=== PATIENT | female | born 1965 | race Caucasian/White ===

== ENCOUNTER 2021-03-05 08:53 | Outpatient (CLI) | payer MEDICARE, MEDICAID, SELFPAY ==
--- NOTE | ~2021-03-05 | CT_ITS ---
EXAMINATION: CT abdomen pelvis wo/w con EXAM DATE: 03/05/2021 09:45 INDICATION: Microscopic hematuria. TECHNIQUE: Spiral CT of the abdomen and pelvis was performed without contrast. The patient was then injected with small bolus intravenous Omnipaque 350, followed by delay of approximately 10 minutes to allow collecting system to opacify. A post contrast scan abdomen and pelvis was performed during inj ection of remaining contrast. A total of 130 cc intravenous contrast was administered. The dose-mich th product (DLP) for this examination was 2035.07 mGy-cm. The exposure was tailored according to pat ient size (auto mA exposure control), and iterative reconstruction (ASIR) was used as additional dose reduction technique. There is no prior study for comparison. FINDINGS: There is no hydronephrosis or nephrolithiasis. The kidneys enhance symmetrically. There are no suspicious renal lesions. The calyces and opacified portions of ureters are unremarkable, wit hout filling defects or focal suspicious strictures. The bladder is unremarkable. Uterus is antever arian and is probably a 4 cm fundal fibroid. The liver, spleen, adrenal glands and pancreas are unremarkable. Gallbladder is unremarkable. No bi liary obstruction. There is no retroperitoneal or pelvic lymphadenopathy. There is mild scattered arteriosclerotic disease. Tiny umbilical fat-containing hernia. There is mild scattered colonic diverticulosis. There is no adjacent inflammatory change to suggest diverticulitis. The stomach and small bowel are unremarkable. There is expected amount of colonic s tool. No free intraperitoneal gas. The heart is normal in size. There are no pericardial or pleu ral effusions. The lung bases are unremarkable. Advanced disc disease L4-5 and L5-S1. There are no osteoblastic or osteolytic lesions identified. IMPRESSION: 1. Fibroid. Otherwise unremarkable genitourinary system. 2. Mild colonic diverticulosis. Reviewed, dictated and finalized at location A.
== END 2021-03-05 08:54 | disposition home or self-care (01) ==
LOC: ANHIMG 09:09
PROVIDERS: PCP Internal Medicine; Visit Provider Urology
DX: R31.29 Other microscopic hematuria (principal); K57.30 Diverticulosis of large intestine without perforation or abscess without bleeding
CPT/HCPCS: 74178; Q9967

== ENCOUNTER 2024-10-26 07:14 | Outpatient (CLI) | payer OTHER, MEDICAID, SELFPAY ==
--- NOTE | ~2024-10-26 | MM_ITS ---
EXAMINATION: MM screening asad BI w nora HISTORY: Screening mammogram TECHNIQUE: Craniocaudal and mediolateral oblique 3-D tomosynthesis images were obtained and synthetic 2-D images were generated. CAD analysis was submitted and interpreted. COMPARISON: No prior mammogram is available for comparison at this institution. BREAST PARENCHYMAL COMPOSITION: The breasts are heterogeneously dense, which may obscure small masses . FINDINGS: There is no evidence of suspicious mass, calcification, or architectural distortion to sugg est malignancy in either breast. IMPRESSION: 1. No mammographic evidence of malignancy. 2. Recommend routine screening mammography in one year. BI-RADS Category 1: Negative Reviewed, dictated and finalized at location A. [employer]
== END 2024-10-26 07:15 | disposition home or self-care (01) ==
LOC: MICIMG 07:15
PROVIDERS: PCP Internal Medicine; Visit Provider Internal Medicine
DX: Z12.31 Encounter for screening mammogram for malignant neoplasm of breast (principal)
CPT/HCPCS: 77063; 77067

== ENCOUNTER 2025-07-26 01:36 | Day surgery (SDC) | payer MEDICARE, MEDICAID, SELFPAY ==
--- NOTE | 2025-07-19 11:27 | PC.NURSE ---
Report to the Outpatient Waiting Room, entrance under the green pavilion located off [facility], at time _9:30 AM on date __07/26/25 . Planned Procedure Time: _11:30 AM .? Time changes happen often and if your time is changed the preop area will call you the afternoon before. - You and your visitor will be asked to self-screen and do not enter if you have any COVID symptoms. Please call surgeon if you need to reschedule. - A mask is optional within the hospital at this time. Patients may have clear liquids (water, carbonated beverages, clear teas, apple juice) until 3 hours prior to surgery ( 8:30 AM) with a maximum of 20 ounces. - No food from midnight until time of surgery and no smoking, or chewing tobacco (or any form of nicotine). No chewing gum, candy or mints. Take only the following medications with a SIP of water on the morning of surgery: __ARIPIPRAZOLE,BUPROPION,BUSPIRONE DO NOT STOP ANY OF YOUR OTHER PRESCRIPTION MEDICATIONS PRIOR TO SURGERY EXCEPT THE FOLLOWING Hold all vitamins and supplements for 3 days per anesthesiologist.LAST DOSE 07/22/25 Medications to discontinue per physician DICLOFENAC PER DR LORETTA SALAMANCA Please no make-up, nail nepali, hairspray, perfume, deodorant, or body powder the day of surgery.? No jewelry (including any body piercings) or valuables the day of surgery, leave them at home.? Please take a shower or bath the night before, or the morning of, surgery with an antibacterial soap.? Wear comfortable, loose fitting clothing.? Children are encouraged to wear pajamas. - Jewelry must be removed prior to entering the operating room.? Rings and piercings that are not removed may be cut off. - The hospital will not accept responsibility for valuables.? - Please leave all valuables, including medications, at home the day of surgery. If you are going home after surgery, a licensed transit mixer driver must drive you home.? - NO public transportation without another adult if you receive anesthesia. - We recommend that an adult stay with you for 24 hours following discharge. - We also recommend that you do not drive, make important decision, drink alcoholic beverages, or take any drugs that were not prescribed by your health care provider for at least 24 hours after your discharge time. For Pediatric surgeries, we recommend two adults accompany the child home. Follow any additional instructions given to you from your surgeon. Telephone instructions given to __PATIENT and asked if any additional questions and then verbalized understanding. Patient advised to call surgeon office or pre surgery nurse liaison [phone] if any additional questions.
[2025-07-19 11:49] VITALS: BMI 32.8
--- NOTE | 2025-07-23 13:03 | PM.IMHP ---
H&P: HPI History of Present Illness Date/Time: 07/23/25 13:03 Chief Complaint: Uterine fibroids and pelvic pain Narrative: 59-year-old female admitted for robotic hysterectomy bilateral salpingo-oophorectomy secondary to symptomatic uterine fibroids. Risks and benefits of hysterectomy were reviewed including but exclusive of , aspiration, bleeding, transfusion, perforation injury to bowel, bladder, ureters, or other internal organs with need for open laparotomy. She received the ACOG handout entitled hysterectomy as well as de Marii handout. She had all questions answered. She asked to proceed Review of Systems Review of Systems: All systems reviewed & are unremarkable except as noted in HPI and below PMFSH Social History Social History Smoking packs per day: 1 Smoking cigarettes per day: 20.0 Years smoked: 40 Smoking pack-years: 40.00 Smoking status: Former smoker Tobacco type: cigarettes Smoking end date: 04/28/24 Living arrangements: alone Spiritual care concerns: No Meds Home Medications and Allergies Home Medications ?Medication ?Instructions ?Recorded ?Confirmed ?Type aripiprazole 2 mg tablet 2 mg PO DAILY 07/19/25 07/19/25 History atorvastatin 20 mg tablet 20 mg PO DAILY 07/19/25 07/19/25 History bupropion HCl 150 mg 24 hr tablet, 150 mg PO DAILY 07/19/25 07/19/25 History extended release buspirone 15 mg tablet 15 mg PO DAILY 07/19/25 07/19/25 History diclofenac sodium 75 mg 75 mg PO BID 07/19/25 07/19/25 History tablet,delayed release estradiol 0.0375 mg/24 hr 1 patch transdermal .EVERY 2 WEEKS 07/19/25 07/19/25 History semiweekly transdermal patch (Yessica) bhtyqlej-lzoc-snpg 8 mg-folic 400 1 tablet PO DAILY 07/19/25 07/19/25 History mcg-K 50 mcg-lutein 300 mcg tablet (Centrum Silver Women) progesterone micronized 100 mg 100 mg PO DAILY 07/19/25 07/19/25 History capsule venlafaxine 150 mg 150 mg PO HS 07/19/25 07/19/25 History capsule,extended release 24 hr Allergies Allergy/AdvReac Type Severity Reaction Status Date / Time No Known Allergies Allergy Verified 07/19/25 11:26 Exam Const: General: cooperative, healthy appearing and comfortable Nutritional Appearance: overweight Orientation/consciousness: oriented to person, oriented to place and oriented to time HENMT: Head: normal to inspection Resp: Effort & Inspection: normal respiratory effort Cardio: Rate: regular rate Rhythm: regular rhythm Heart sounds: S1 normal heart sound present and S2 normal heart sound present GI: Inspection: normal to inspection : External Female Exam: normal external appearance Speculum Exam - Vagina: normal appearance of the vagina Speculum Exam - Cervix: normal appearance of the cervix Bimanual exam- vagina & uterus: enlarged and Uterine tenderness Bimanual Exam- Adnexa, other: normal adnexae Assessment and Plan Assessment and plan (1) Uterine fibroid: Code(s): D25.9 - Leiomyoma of uterus, unspecified Status: Acute Plan Proceed with robotic total vaginal hysterectomy and bilateral salpingo-oophorectomy
[2025-07-26] VITALS (9 sets, daily range): BP systolic 114–143; BP diastolic 52–89; PULSE 84–94; RESP 12–20; TEMP 36.2–36.8; O2SAT 93–98
--- NOTE | 2025-07-26 06:52 | WPDHPUPDATE1 ---
History and Physical Update Update Date/Time: 07/26/25 06:52 History and Physical has been reviewed, including an updated exam of the patient. There are NO changes in the patient's condition. Risks, benefits, and alternatives have been discussed and questions answered. Patient agrees to proceed with procedure.
--- NOTE | 2025-07-26 07:09 | WPDANESEPPF ---
Anes - Initial Pre Proc Eval Procedure: Operation Date: 07/26/25 13:30 Proposed Procedures p Robotic Assisted Total Vaginal Hysterectomy with Bilateral Salpingo-oophorectomy - Olvin Michel MD Date/Time: 07/26/25 07:09 Surgeon: Olvin Michel MD Pre Op Diagnosis: pelvic pain, fbroids Patient Data Age: 59 Gender: F Height: 1.68 m Weight: 92.2 kg Allergies Allergy/AdvReac Type Severity Reaction Status Date / Time No Known Allergies Allergy Verified 07/19/25 11:26 Home Medications ?Medication ?Instructions ?Recorded ?Confirmed ?Type aripiprazole 2 mg tablet 2 mg PO DAILY 07/19/25 07/26/25 History atorvastatin 20 mg tablet 20 mg PO DAILY 07/19/25 07/26/25 History bupropion HCl 150 mg 24 hr tablet, 150 mg PO DAILY 07/19/25 07/26/25 History extended release buspirone 15 mg tablet 15 mg PO DAILY 07/19/25 07/26/25 History diclofenac sodium 75 mg 75 mg PO BID 07/19/25 07/26/25 History tablet,delayed release estradiol 0.0375 mg/24 hr 1 patch transdermal .EVERY 2 WEEKS 07/19/25 07/26/25 History semiweekly transdermal patch (Yessica) csafdiak-zzup-ldaz 8 mg-folic 400 1 tablet PO DAILY 07/19/25 07/26/25 History mcg-K 50 mcg-lutein 300 mcg tablet (Centrum Silver Women) progesterone micronized 100 mg 100 mg PO DAILY 07/19/25 07/26/25 History capsule venlafaxine 150 mg 150 mg PO HS 07/19/25 07/26/25 History capsule,extended release 24 hr hydrocodone 5 mg-acetaminophen 325 1 tablet PO Q4H PRN pain #20 tabs 07/26/25 Rx mg tablet Patient hx anesthesia problems: none Family hx anesthesia problems: none Results Review: All pre-operative results and documents have been reviewed as part of the pre-operative evaluation. [facility] Past Medical History Medical History (Updated 07/26/25 @ 07:11 by Hermelindo Keating DO) Depression Anxiety Hyperlipidemia Social History Social History Smoking packs per day: 1 Smoking cigarettes per day: 20.0 Years smoked: 40 Smoking pack-years: 40.00 Smoking status: Former smoker Tobacco type: cigarettes Smoking end date: 04/28/24 Living arrangements: alone Spiritual care concerns: No Anes - Eval Final PreProcedure Day of Procedure 07/26/25 07:09 Patient weight: obese Heart: regular rate and rhythm Lungs: clear to auscultation Airway: Mallampati scale class III Neurological: alert and oriented Last oral intake: >/= 8 hours ASA classification: III Emergent: no Anesthetic plan: proceed Anesthesia type and monitoring: general ETT and standard monitoring Results Review: All pre-operative results and documents have been reviewed as part of the pre-operative evaluation. Informed Consent: The patient's anesthetic plan and its attendant risks and benefits were discussed with the patient/family/POA. Questions were solicited and answers provided to the satisfaction of the patient/family/POA.
--- NOTE | 2025-07-26 09:25 | ECG_ITS ---
Test Date: 2025-07-26 09:39:13 Measurements Intervals Marvell Rate: 84 P: 28 ND: 148 QRS: 39 QRSD: 86 T: 37 QT: 352 QTc: 416 Interpretive Statements SINUS RHYTHM BORDERLINE ST-T WAVE ABNORMALITY- ANT/INF LEADS BASELINE ARTIFACT- I, II, III, AVR, AVL, AVF, V1-V6 BORDERLINE ECG No previous ECG available for comparison Electronically Signed On 07-26-2025 09:52:43 CDT by Sixto Ward D.O.
[2025-07-26 09:45] LABS: Hematocrit 41.2 % (37.0-47.0); Hemoglobin 13.4 g/dL (12.0-15.0); Immature Granulocyte Percent A 0.3 % (0-0.5); Lymphocytes Absolute Auto 1.65 K/mm3 (0.9-3.2); Mean Corpuscular HGB Conc 32.5 g/dl (32-36); Mean Corpuscular Hemoglobin 32.1 pg (26-34); Mean Corpuscular Volume 98.6 fl (80-100); Nucleated Red Blood Cells Absolute Auto 0.000 K/mm3 (0.0-0.012); Nucleated Red Blood Cells Perc 0.0 % (0.0-0.2); Platelet Count Result 248 k/mm3 (150-375); Red Blood Count 4.18 M/mm3 (4.2-5.4); White Blood Count 6.2 K/mm3 (4.5-10.0)
[2025-07-26] MEDS: LACTATED RINGERS 1,000 ML 30 ML IV CONT ×2 (10:45→14:20)
[2025-07-26] MEDS: KETOROLAC 15 MG/ML VIAL (*BKC) IV PUSH (11:18)
[2025-07-26] MEDS: ACETAMINOPHEN 500 MG TABLET 1000 MG PO ×2 (11:18→18:05)
[2025-07-26] MEDS: ceFAZolin 2 GM in SODIUM CHLORIDE 0.9% IV 50 ML 100 ML IVPB (12:54)
--- NOTE | 2025-07-26 13:39 | S_PTH ---
PATIENT: Janae Badillo LOC: [facility] U#:[id number] AGE/SX: 59/F ROOM: RE07/26/[address]: Olvin Michel MD : 1965 BED: DIS: 07/27/2025 SPEC #: [id number] RECD: 07/30/25 07:40 STATUS: GRAEME REQ #: [id number] DAVID: 07/26/25 13:[address]: Olvin Whyte DEPT: [facility] Surgical RECD BY: Kristy Craven ENTERED: 07/30/25 07:40 SP TYPE: Surgical OTHR DR: Rodger MckeeMD Tissues: A - Uterus Procedures: Hematoxylin and Eosin Stain Gross and Microscopic Level 5
--- NOTE | 2025-07-26 13:56 | P.OP_ITS ---
Procedure Note - Detailed Date of Procedure 07/26/25 Pre-op Diagnosis pelvic pain, fbroids Post-op Diagnosis Same Procedure Performed Robotic total vaginal hysterectomy and bilateral salpingo-oophorectomy Surgeon Olvin Michel MD Anesthesia General Indications 59-year-old female symptomatic uterine fibroids Findings Large fibroid uterus. Normal-appearing ovaries and tubes. Description of Procedure Patient was prepped draped in the normal sterile fashion placed in dorsal lithotomy position. Under excellent endotracheal anesthesia weighted speculum placed in posterior fornix vagina. Anterior lip of the cervix grasped with a single-tooth tenaculum. Uterus sounded to 10cm. Serial dilatation fragmented dilators performed followed by passage of the 8. MAHOGANY and the 3. Cold cup. Next the 16 Bulgarian catheter placed in bladder and the weighted speculum and the single-tooth removed. The gloves were changed. A supraumbilical incision made the Veress needle passed into the abdomen. Abdomen was then filled with CO2 gas [id number]. The 8mm trocar advanced in the abdomen downside visualized with no injury seen. Patient placed in Trendelenburg. Right l and left lower quadrant incisions made 8mm trocars advanced under direct visualization assuring injury. A right upper quadrant incision made the 8mm trocar advanced under direct visualization assuring no injury. The robot was docked. Attention was turned to the console. The left round ligament grasped, burned, cut. Anteriorly a bladder flap was formed by sharply dissecting the peritoneum and pushing this caudally away from the cervix uterus the opposite round ligament was clamped, burned, cut. Next the infundibulopelvic structure on the left was skeletonized to remove ovary and tube on the left this was serially clamped, burned, cut and brought to level of previously cut round ligament. Similarly on the right, the infundibulopelvic structure was skeletonized clamping burning cutting to remove the right ovary and the tube this was brought to the level of the previously cut round ligament. Next cardinal broad ligaments on the left were serially skeletonized clamping burning cutting and bringing this down the lateral edge of the uterus hugging the uterus and cervix until the large tortuous uterine vessels could be seen. These were individually clamped, burned, cut. In a similar fashion on the right the cardinal broad ligaments were serially skeletonized clamping burning cutting and hugging the cervix and uterus until the uterine vessels could be seen on the right these were individually clamped, burned, cut hemostasis was noted and blanching of the uterus was noted as well. Colpotomy incision made and the cervix uterus ovaries and tubes removed through the vagina. The vagina was then closed with continuou s running 0V lock from lateral edge to lateral edge back to the midline. Irrigation subcutaneous layer the no abnormalities are bleeding was seen. The robot was undocked. The gas removed was removed from the abdomen. The incisions closed with 4 Monocryl and glue and the patient awakened. Blood loss was estimated at [id number]. All sponge, needle, instrument counts were correct. There were no immediate complications Estimated Blood Loss 25 Drains No Packing No Pathology Yes Complications No immediate complications Condition Stable Disposition PACU
--- NOTE | 2025-07-26 14:00 | P.DS_ITS ---
DS: Admitting Diagnosis Discharge Date 07/27/2025 Admitting Diagnosis Uterine fibroids DS: Discharge Diagnosis Discharge Diagnosis (1) Uterine fibroid: Code(s): D25.9 - Leiomyoma of uterus, unspecified Status: Acute DS: Summary Hospital Course Reason for hospitalization: Patient was admitted for robotic total vaginal hysterectomy bilateral salpingo- oophorectomy on 07/26/2025 Hospital Course: Patient's hospital course unremarkable. She remained afebrile. She was up, voiding without difficulty, eating regular diet, ambulating, and generally without complaints. Time Spent with Patient Time attestation: Total time spent providing and/or coordinating discharge services: Exam Const: General: cooperative, healthy appearing and comfortable Nutritional Appearance: overweight Orientation/consciousness: oriented to person, oriented to place and oriented to time HENMT: Head: normal to inspection Resp: Effort & Inspection: normal respiratory effort Cardio: Rate: regular rate Rhythm: regular rhythm Heart sounds: S1 normal heart sound present and S2 normal heart sound present GI: Inspection: normal to inspection and incision (Clean dry and intact) DS: Data Data Completed and Pending Pending studies at discharge: Pending at discharge 07/26/25 13:39 Surgical [PTH] Routine Labs on day of discharge: Labs from last 24 hours 07/26/25 09:35 WBC 6.2 RBC 4.18 L Hgb 13.4 Hct 41.2 MCV 98.6 MCH 32.1 MCHC 32.5 RDW 12.7 Plt Count 248 MPV 9.5 Immature Gran % (Auto) 0.3 Neut % (Auto) 59.2 Lymph % (Auto) 26.6 [place] % (Auto) 9.3 H Eos % (Auto) 4.0 Baso % (Auto) 0.6 Lymph # (Auto) 1.65 [place] # (Auto) 0.6 Eos # (Auto) 0.3 Baso # (Auto) 0.0 Abs Immat Gran (auto) 0.02 Absolute Neuts (auto) 3.7 Absolute Nucleated RBC 0.000 Nucleated RBC % 0.0 Blood Type A Negative Antibody Screen Negative Discharge Plan Discharge Patient Disposition: Home Patient Instructions: Laparoscopic Hysterectomy (DC) Patient Language: Kyrgyz Stand Alone Forms: General Discharge Instructions Follow-up/Referrals: Olvin Whyte MD [Physician, INSPECTOR [employer]] Discharge Medications: New hydrocodone-acetaminophen 5-325 mg tablet 1 tablet PO Q4H PRN (Reason: pain) Qty: 20 0RF Continued venlafaxine 150 mg capsule,extended release 24hr 150 mg PO HS atorvastatin 20 mg tablet 20 mg PO DAILY buspirone 15 mg tablet 15 mg PO DAILY bupropion HCl 150 mg tablet extended release 24 hr 150 mg PO DAILY aripiprazole 2 mg tablet 2 mg PO DAILY diclofenac sodium 75 mg tablet,delayed release (DR/EC) 75 mg PO BID Centrum Silver Women 8 mg iron-400 mcg-50 mcg tablet 1 tablet PO DAILY estradiol [Yessica] 0.0375 mg/24 hr patch semiweekly 1 patch transdermal .EVERY 2 WEEKS Discontinued progesterone micronized 100 mg capsule 100 mg PO DAILY
--- NOTE | 2025-07-26 16:00 | PC.NURSE ---
This patient, Janae Badillo, was received from PACU on 07/26/25 at 1600. Patient/family oriented to unit policies and routines
[2025-07-26] MEDS: SIMETHICONE 80 MG TAB.CHEW PO (18:05)
[2025-07-26] MEDS: DOCUSATE SODIUM 100 MG CAPSULE PO (18:05)
[2025-07-26] MEDS: KETOROLAC 30 MG/ML VIAL (*BKC) IV PUSH (18:06)
[2025-07-27 00:05] VITALS: BP 119/78; PULSE 84; RESP 16; TEMP 36.6; O2SAT 95
[2025-07-27] MEDS: ACETAMINOPHEN 500 MG TABLET 1000 MG PO ×2 (00:09→05:53)
[2025-07-27] MEDS: KETOROLAC 30 MG/ML VIAL (*BKC) IV PUSH ×2 (00:12→05:54)
[2025-07-27 03:55] VITALS: BP 110/73; PULSE 88; RESP 16; TEMP 36.7; O2SAT 94
[2025-07-27 04:04] LABS: Hematocrit 38.0 % (37.0-47.0); Hemoglobin 12.5 g/dL (12.0-15.0); Immature Granulocyte Percent A 0.4 % (0-0.5); Lymphocytes Absolute Auto 0.81 K/mm3 (0.9-3.2); Mean Corpuscular HGB Conc 32.9 g/dl (32-36); Mean Corpuscular Hemoglobin 32.3 pg (26-34); Mean Corpuscular Volume 98.2 fl (80-100); Nucleated Red Blood Cells Absolute Auto 0.000 K/mm3 (0.0-0.012); Nucleated Red Blood Cells Perc 0.0 % (0.0-0.2); Platelet Count Result 230 k/mm3 (150-375); Red Blood Count 3.87 M/mm3 (4.2-5.4); White Blood Count 9.2 K/mm3 (4.5-10.0)
[2025-07-27 08:34] VITALS: BP 118/61; PULSE 95; RESP 16; TEMP 36.6; O2SAT 93
[2025-07-27] MEDS: SIMETHICONE 80 MG TAB.CHEW PO (08:45)
[2025-07-27] MEDS: DOCUSATE SODIUM 100 MG CAPSULE PO (08:45)
[2025-07-27] MEDS: ENOXAPARIN 40 MG/0.4 ML SYRINGE SUB-Q (08:45)
--- NOTE | 2025-07-27 10:13 | PM.GYNPNOP ---
APARTMENT COMMUNITY ASSISTANT MANAGER - A/P Postoperative Procedures: Procedures Operation Date: 07/26/25 13:30 Actual Procedure Side Surgeon p Robotic Assisted Total Vaginal Hysterectomy with Bilateral Salpingo-oophorectomy Bilateral Olvin Michel MD Postoperative day: 1 Postoperative status: doing well Postoperative plan: routine post-op care and discharge Time Spent With Patient Time: Total time spent is greater than 50% in coordination of care (as documented) at patient's floor/unit and/or counseling patient: Time with patient: less than 15 minutes APARTMENT COMMUNITY ASSISTANT MANAGER- PN:Subj Post-Op Subjective Date/time seen: 07/27/25 10:13 Subjective: pain is well controlled and patient is tolerating oral intake Exam Narrative: incisions c/d/i with surrounding bruising abdomen soft, nd, mild tenderness APARTMENT COMMUNITY ASSISTANT MANAGER - PN: Obj Data Vital Signs Vital Signs: Vital Signs - 24 hr 07/26/25 10:35 07/26/25 14:20 07/26/25 14:35 Temperature 97.2 F L 97.5 F L Pulse Rate 88 87 85 Respiratory Rate 20 12 16 Blood Pressure 121/71 138/75 138/79 Pulse Oximetry 98 95 93 Oxygen Delivery Room Air Simple Face Mask Simple Face Mask Oxygen Flow Rate 12 12 07/26/25 14:50 07/26/25 15:05 07/26/25 15:20 Temperature Pulse Rate 84 86 88 Respiratory Rate 16 12 14 Blood Pressure 132/52 L 133/75 130/89 Pulse Oximetry 96 93 94 Oxygen Delivery Simple Face Mask Nasal Cannula Nasal Cannula Oxygen Flow Rate 12 4 3 07/26/25 15:35 07/26/25 16:00 07/26/25 21:00 Temperature 97.6 F 98.2 F Pulse Rate 87 88 94 Respiratory Rate 12 16 16 Blood Pressure 143/77 H 138/86 114/79 Pulse Oximetry 93 95 93 Oxygen Delivery Nasal Cannula Oxygen Flow Rate 2 07/27/25 00:05 07/27/25 03:55 07/27/25 08:34 Temperature 97.8 F 98.1 F 98 F Pulse Rate 84 88 95 Respiratory Rate 16 16 16 Blood Pressure 119/78 110/73 118/61 Pulse Oximetry 95 94 93 Oxygen Delivery Oxygen Flow Rate Intake/Output Intake/Output: Intake & Output 07/24/25 07/25/25 07/26/25 07/27/25 23:59 23:59 23:59 23:59 Intake Total 750 500 Output Total 014 3327 Balance 50 -1425 Meds/Results Medications: Active Medications Generic Name Dose Route Start Last Admin Trade Name Freq PRN Reason Stop Dose Admin Acetaminophen 1,000 mg 07/26/25 18:00 07/27/25 05:53 Acetaminophen 500 Mg Tablet PO 1,000 mg Q6HR SELENA Administration Docusate Sodium 100 mg 07/26/25 17:00 07/27/25 08:45 Docusate Sodium 100 Mg Capsule PO 100 mg BID [facility] Administration Enoxaparin Sodium 40 mg 07/27/25 09:00 07/27/25 08:45 Enoxaparin 40 Mg/0.4 Ml Syringe SUB-Q 40 mg DAILY [facility] Administration Ibuprofen 600 mg 07/27/25 12:00 Ibuprofen 600 Mg Tablet PO Q6HR [facility] Naloxone HCl 0.1 mg 07/26/25 15:50 Naloxone Hcl 0.4 Mg/Ml Vial IV PUSH Q2M PRN Respiratory rate less than 10 Ondansetron HCl 4 mg 07/26/25 15:50 Ondansetron Inj 4 Mg/2 Ml Vial IV PUSH Q6H PRN Nausea And Vomiting Oxycodone HCl 5 mg 07/26/25 15:50 Oxycodone Hcl (*Crx) 5 Mg Tab Ir PO Q4H PRN Pain Rated 4-6 Oxycodone HCl 10 mg 07/26/25 15:50 Oxycodone Hcl (*Crx) 5 Mg Tab Ir PO Q6H PRN Pain Rated 7-10 Simethicone 80 mg 07/26/25 17:00 07/27/25 08:45 Simethicone 80 Mg Tab.Chew PO 80 mg TIDWM SELENA Administration Labs 07/27/25 03:56 Labs: Laboratory Results - last 24 hr 07/26/25 07/27/25 09:35 03:56 WBC 9.2 RBC 3.87 L Hgb 12.5 Hct 38.0 MCV 98.2 MCH 32.3 MCHC 32.9 RDW 12.6 Plt Count 230 MPV 9.6 Immature Gran % (Auto) 0.4 Neut % (Auto) 85.9 H Lymph % (Auto) 8.8 L [place] % (Auto) 4.8 Eos % (Auto) 0.0 Baso % (Auto) 0.1 L Lymph # (Auto) 0.81 L [place] # (Auto) 0.4 Eos # (Auto) 0.0 Baso # (Auto) 0.0 Abs Immat Gran (auto) 0.04 H Absolute Neuts (auto) 7.9 H Absolute Nucleated RBC 0.000 Nucleated RBC % 0.0 Blood Type A Negative Antibody Screen Negative
== END 2025-07-27 11:14 | disposition home or self-care (01) ==
LOC: ANHSURGERY 09:10 → ANHOB2 16:09
PROVIDERS: PCP Internal Medicine; Visit Provider Obstetrics & Gynecology
PROC: (CPT 58552; principal; 2025-07-26 13:30)
DX: D25.1 Intramural leiomyoma of uterus (principal); N87.9 Dysplasia of cervix uteri, unspecified; N80.03 Adenomyosis of the uterus; N83.312 Acquired atrophy of left ovary; N83.311 Acquired atrophy of right ovary; E78.5 Hyperlipidemia, unspecified; F32.A Depression, unspecified; F41.9 Anxiety disorder, unspecified; E66.9 Obesity, unspecified; Z68.32 Body mass index [BMI] 32.0-32.9, adult; Z79.891 Long term (current) use of opiate analgesic; Z87.891 Personal history of nicotine dependence
CPT/HCPCS: 58552; S2900; 36415; 85025; 86850; 86900; 86901; 88307; 93005; 99199; J0690; A9270; J1100; J1171; J1200; J1650; J1885; J2003; J2250; J2405; J2704; J3010; J7030; J7120